=== PATIENT | male | born 1970 | race Caucasian/White ===

== ENCOUNTER 2022-01-08 01:00 | Emergency (ER) | payer OTHER ==
[~2022-01-08] VITALS: Wt 79.4 kg
[2022-01-08] MEDS ORDERED: CEPHALEXIN500 M1 PO (01:42)
== END 2022-01-08 02:19 | disposition home or self-care (01) ==
LOC: ED 01:00
DX: S61.210A Laceration without foreign body of right index finger without damage to nail, initial encounter (principal); W26.0XXA Contact with knife, initial encounter; Y93.89 Activity, other specified; Y92.89 Other specified places as the place of occurrence of the external cause; Y99.8 Other external cause status

== ENCOUNTER → 2023-07-18 | Outpatient (CLI) | payer OTHER ==
[~2023-07-18] MED LIST: CEPHALEXIN500 M1 PO
[2023-07-18 10:18] LABS: BILIRUBIN Negative (Negative); BLOOD Negative (Negative); CLARITY Clear (Clear); COLOR Yellow (Yellow); GLUCOSE 3+ (Negative); KETONE Trace (Negative); LEUKO ESTERASE Negative (Negative); NITRITE Negative (Negative); PH 6.5 (4.5-8.0); SPECIFIC GRAVITY >= 1.030 (1.001-1.030)
[2023-07-18 10:46] LABS: ALKALINE PHOSPHATASE 78 U/L (46-116); BUN 8 mg/dl (9-23); CHLORIDE 104 mmol/L (98-107); CHOLESTEROL 183 mg/dL (<200); LDL CHOLESTEROL 117 mg/dL (9-159); SGPT/ALT 42 U/L (5-49); TRIGLYCERIDES 114 mg/dl (<150)
[2023-07-18 10:59] LABS: WHITE BLOOD CELL CAST 0-2
== END | disposition home or self-care (01) ==
LOC: LAB 09:49
PROVIDERS: ATTEND Internal Medicine
DX: E11.65 Type 2 diabetes mellitus with hyperglycemia (principal); E55.9 Vitamin D deficiency, unspecified; E78.5 Hyperlipidemia, unspecified

== ENCOUNTER → 2023-12-20 | Outpatient (CLI) | payer OTHER ==
[2023-12-20 10:03] LABS: BILIRUBIN Negative (Negative); BLOOD Negative (Negative); CLARITY Clear (Clear); COLOR Yellow (Yellow); GLUCOSE 3+ (Negative); KETONE Trace (Negative); LEUKO ESTERASE Negative (Negative); NITRITE Negative (Negative); SPECIFIC GRAVITY >= 1.030 (1.001-1.030)
[2023-12-20 10:13] LABS: ALKALINE PHOSPHATASE 78 U/L (46-116); BUN 9 mg/dl (9-23); CHLORIDE 105 mmol/L (98-107); CHOLESTEROL 156 mg/dL (<200); LDL CHOLESTEROL 100 mg/dL (9-159); POTASSIUM 3.9 mmol/L (3.4-5.1); SGPT/ALT 34 U/L (5-49); TOTAL PROTEIN 7.9 gm/dL (6.0-8.0); TRIGLYCERIDES 82 mg/dl (<150); VITAMIN D, 25-HYDROXY 20.8 ng/mL (30-100)
[2023-12-20 10:29] LABS: RBC 0-2 rbc/hpf (0-2); WBC 0-2 wbc/hpf (0-5)
== END | disposition home or self-care (01) ==
LOC: LAB 09:19
PROVIDERS: ATTEND Internal Medicine
DX: E11.41 Type 2 diabetes mellitus with diabetic mononeuropathy (principal); E55.9 Vitamin D deficiency, unspecified; E78.5 Hyperlipidemia, unspecified; E04.9 Nontoxic goiter, unspecified

== ENCOUNTER 2023-12-29 18:26 | Emergency (ER) | payer OTHER ==
[~2023-12-29] VITALS: Ht 172.7 cm; Wt 81.6 kg
[2023-12-29] MEDS ORDERED: ATORVASTATIN CA20 M1 PO (18:42)
[2023-12-29] MEDS ORDERED: VITAMIN D-40010 MCG PO (18:43)
[2023-12-29] MEDS ORDERED: METFORMIN XR500 MG PO (18:43)
[2023-12-29] MEDS ORDERED: 'CLONIDINE0.1 MG PO (18:43)
[2023-12-29] MEDS ORDERED: FREESTYLE LIBR1 EAC7 MC (18:43)
[2023-12-29] MEDS ORDERED: REXULTI1 MG PO (18:43)
[2023-12-29] MEDS ORDERED: INSULIN LI100 UNIT/2 SQ (18:43)
[2023-12-29] MEDS ORDERED: SEPTDS PO (19:48)
== END 2023-12-29 19:52 | disposition home or self-care (01) ==
LOC: ED 18:26
DX: K61.1 Rectal abscess (principal); Z88.8 Allergy status to other drugs, medicaments and biological substances

== ENCOUNTER → 2024-05-17 | Outpatient (CLI) | payer OTHER ==
[~2024-05-17] MED LIST changes: +'CLONIDINE0.1 MG PO; +ATORVASTATIN CA20 M1 PO; +FREESTYLE LIBR1 EAC7 MC; +INSULIN LI100 UNIT/2 SQ; +METFORMIN XR500 MG PO; +REXULTI1 MG PO; +SEPTDS PO; +VITAMIN D-40010 MCG PO
[2024-05-17 09:23] LABS: BILIRUBIN Negative (Negative); BLOOD Negative (Negative); CLARITY Clear (Clear); COLOR Yellow (Yellow); GLUCOSE 3+ (Negative); KETONE Negative (Negative); LEUKO ESTERASE Negative (Negative); NITRITE Negative (Negative); PH 6.5 (4.5-8.0); SPECIFIC GRAVITY >= 1.030 (1.001-1.030)
[2024-05-17 09:48] LABS: ALKALINE PHOSPHATASE 77 U/L (46-116); BUN 7 mg/dl (9-23); CHLORIDE 102 mmol/L (98-107); CHOLESTEROL 157 mg/dL (<200); LDL CHOLESTEROL 93 mg/dL (9-159); SGPT/ALT 41 U/L (5-49); TOTAL PROTEIN 7.5 gm/dL (6.0-8.0); TRIGLYCERIDES 125 mg/dl (<150)
[2024-05-17 10:05] LABS: EPITHELIAL CELLS 0-2; RBC 0-2 rbc/hpf (0-2)
== END | disposition home or self-care (01) ==
LOC: LAB 08:43
PROVIDERS: ATTEND Internal Medicine
DX: E11.65 Type 2 diabetes mellitus with hyperglycemia (principal); E55.9 Vitamin D deficiency, unspecified; E11.41 Type 2 diabetes mellitus with diabetic mononeuropathy; E04.9 Nontoxic goiter, unspecified; E78.5 Hyperlipidemia, unspecified

== ENCOUNTER 2024-07-21 21:04 | Emergency (ER) | payer OTHER ==
[~2024-07-21] VITALS: Ht 175.2 cm; Wt 81.6 kg
[2024-07-21] MEDS ORDERED: Ketorolac Tromethamine 30 MG/ML VIAL IV ONE (21:30)
[2024-07-21] MEDS ORDERED: Ondansetron Hydrochloride 4 MG/2 ML VIAL IV ONE (21:30)
[2024-07-21] MEDS ORDERED: SODIUM CHLORIDE 0.9% 1,000 ML IV ONE (21:30)
[2024-07-21] MEDS ORDERED: diphenhydrAMINE hydrochloride 50 MG/ML VIAL IV ONE (21:30)
[2024-07-21] MEDS ORDERED: ZITHROMAX250 MG PO (23:02)
[2024-07-21] MEDS ORDERED: PREDNISONE20 M1 PO (23:02)
== END 2024-07-21 23:04 | disposition home or self-care (01) ==
LOC: ED 21:04
DX: B34.9 Viral infection, unspecified (principal); R51.9 Headache, unspecified; Z20.822 Contact with and (suspected) exposure to COVID-19; Z88.8 Allergy status to other drugs, medicaments and biological substances; Z79.899 Other long term (current) drug therapy; Z79.4 Long term (current) use of insulin; Z79.84 Long term (current) use of oral hypoglycemic drugs

== ENCOUNTER → 2024-09-19 | Outpatient (CLI) | payer OTHER ==
[~2024-09-19] MED LIST changes: +PREDNISONE20 M1 PO; +ZITHROMAX250 MG PO
[2024-09-19 10:06] LABS: BILIRUBIN Negative (Negative); BLOOD Negative (Negative); CLARITY Clear (Clear); COLOR Yellow (Yellow); GLUCOSE 3+ (Negative); KETONE Negative (Negative); LEUKO ESTERASE Negative (Negative); NITRITE Negative (Negative); SPECIFIC GRAVITY >= 1.030 (1.001-1.030); UROBILINOGEN 0.2 E.U./dl (0.0-1.0)
[2024-09-19 10:37] LABS: EPITHELIAL CELLS 0-2
[2024-09-19 11:53] LABS: VITAMIN D, 25-HYDROXY 40.2 ng/mL (30-100)
[2024-09-19 11:54] LABS: ALKALINE PHOSPHATASE 78 U/L (46-116); BUN 9 mg/dl (9-23); CHLORIDE 105 mmol/L (98-107); CHOLESTEROL 167 mg/dL (<200); FREE T4 1.06 ng/dl (0.89-1.76); LDL CHOLESTEROL 103 mg/dL (9-159); POTASSIUM 3.8 mmol/L (3.4-5.1); SGPT/ALT 34 U/L (5-49); TOTAL PROTEIN 7.7 gm/dL (6.0-8.0); TRIGLYCERIDES 125 mg/dl (<150)
== END | disposition home or self-care (01) ==
LOC: LAB 09:42
PROVIDERS: ATTEND Internal Medicine
DX: E11.65 Type 2 diabetes mellitus with hyperglycemia (principal); E11.41 Type 2 diabetes mellitus with diabetic mononeuropathy; E78.5 Hyperlipidemia, unspecified; E55.9 Vitamin D deficiency, unspecified; E04.9 Nontoxic goiter, unspecified

== ENCOUNTER → 2025-01-17 | Outpatient (CLI) | payer OTHER ==
[2025-01-17 09:44] LABS: BILIRUBIN Negative (Negative); BLOOD Negative (Negative); CLARITY Clear (Clear); COLOR Yellow (Yellow); KETONE Trace (Negative); LEUKO ESTERASE Negative (Negative); NITRITE Negative (Negative); PH 5.5 (4.5-8.0); SPECIFIC GRAVITY >= 1.030 (1.001-1.030); UROBILINOGEN 0.2 E.U./dl (0.0-1.0)
[2025-01-17 10:00] LABS: EPITHELIAL CELLS 0-2; WBC 0-2 wbc/hpf (0-5)
[2025-01-17 10:01] LABS: RBC 0-2 rbc/hpf (0-2)
[2025-01-17 10:10] LABS: BUN 8 mg/dl (9-23); LDL CHOLESTEROL 86 mg/dL (9-159); SGPT/ALT 35 U/L (5-49); VITAMIN D, 25-HYDROXY 39.0 ng/mL (30-100)
== END | disposition home or self-care (01) ==
LOC: LAB 09:03
PROVIDERS: ATTEND Internal Medicine
DX: E11.65 Type 2 diabetes mellitus with hyperglycemia (principal); E55.9 Vitamin D deficiency, unspecified; E78.5 Hyperlipidemia, unspecified; E11.41 Type 2 diabetes mellitus with diabetic mononeuropathy; E04.9 Nontoxic goiter, unspecified

== ENCOUNTER → 2025-04-01 | Outpatient (CLI) | payer OTHER ==
[~2025-04-01] MED LIST changes: +Technetium Tc 99M Tetrofosmi 0.23 MG KIT IJ SCH
== END | disposition home or self-care (01) ==
LOC: CARD 01:31
PROVIDERS: ATTEND Internal Medicine Cardiovascular Disease
DX: I20.89 Other forms of angina pectoris (principal)